=== PATIENT | female | born 1990 | race Hispanic/Latino ===

== ENCOUNTER → 2024-10-30 11:18 | Outpatient (REF) | payer OTHER, SELFPAY ==
[2024-10-30 12:20] LABS: % Basophils 0.7 % (0-2); % Eosinophils 2.8 % (0-6); % Immature Granulocytes 0.3 % (0-0.5); % Lymphocytes 23.6 % (20.5-51.1); % Monocytes 6.7 % (1.7-9.3); % Neutrophils 65.9 % (42.2-75.2); Absolute Basophils 0.1 10^3/uL (0-0.2); Absolute Eosinophils 0.2 10^3/uL (0-0.7); Absolute Lymphocytes 1.7 10^3/uL (1.2-3.4); Absolute Monocytes 0.5 10^3/uL (0.1-0.6); Absolute Neutrophils 4.6 10^3/uL (1.4-6.5); Hematocrit 39.6 % (37.0-47.0); Hemoglobin 13.4 g/dL (12.0-16.0); Mean Corp Hgb Conc. 33.8 g/dL (33.0-37.0); Mean Corpuscular Hgb 29.4 pg (27.0-31.0); Mean Corpuscular Volume 86.8 fL (81.0-99.0); Nucleated Red Blood Cells % 0 %; Platelet Count 301 10^3/uL (130-400); Red Blood Cell Count 4.56 10^6/uL (4.20-5.40); Red Cell Dist. Width 12.2 % (11.5-14.5)
[2024-10-30 12:41] LABS: ALT (SGPT) 15 U/L (0-35); AST (SGOT) 20 U/L (14-36); Albumin 4.6 g/dl (3.5-5.0); Alkaline Phosphatase 81 U/L (38-126); Blood Urea Nitrogen 20 mg/dl (7-17); Calcium 8.8 mg/dl (8.4-10.2); Carbon Dioxide 26 mmol/L (22-30); Chloride 102 mmol/L (98-107); Glucose 88 mg/dl (70-99); Potassium 4.1 mmol/L (3.5-5.1); Sodium 136 mmol/L (135-145); Total Bilirubin 0.5 mg/dl (0.2-1.3); Total Protein 7.2 g/dl (6.3-8.2); eGFR > 60.00
[2024-10-30 12:43] LABS: HCG, Serum Qualitative Screen Positive
[2024-10-30 12:47] LABS: Prolactin 7.5 ng/ml (3.0-18.6)
[2024-10-30 13:01] LABS: TSH Reflex To Free T4 1.06 uIU/ml (0.47-4.68)
[2024-10-30 13:03] LABS: Testosterone, Total 10.2 ng/dl
== END ==
LOC: CLINIC 11:18
PROVIDERS: ATTENDING PHYSICIAN Family Medicine
DX: N93.9 Abnormal uterine and vaginal bleeding, unspecified (principal)
CPT/HCPCS: 36415; 80053; 84146; 84403; 84443; 84703; 85025

== ENCOUNTER → 2024-11-06 11:08 | Outpatient (REF) | payer OTHER, SELFPAY ==
[2024-11-06 12:17] LABS: Beta HCG Quantitative 4.59 mIU/ml
== END ==
LOC: CLINIC 11:08
PROVIDERS: ATTENDING PHYSICIAN Family Medicine
DX: R79.89 Other specified abnormal findings of blood chemistry (principal)
CPT/HCPCS: 36415; 84702

== ENCOUNTER → 2024-11-18 16:03 | Outpatient (REF) | payer OTHER, SELFPAY ==
[2024-11-18 18:08] LABS: Beta HCG Quantitative < 2.39 mIU/ml
== END ==
LOC: CLINIC 16:03
PROVIDERS: ATTENDING PHYSICIAN Family Medicine
DX: R79.89 Other specified abnormal findings of blood chemistry (principal)
CPT/HCPCS: 36415; 84702

== ENCOUNTER → 2024-12-25 11:13 | Outpatient (REF) | payer OTHER, SELFPAY | LOC: CLINIC 11:13 | PROVIDERS: ATTENDING PHYSICIAN Family Medicine | DX: Z12.4 Encounter for screening for malignant neoplasm of cervix (principal) | CPT/HCPCS: 87624; G0123 ==